=== PATIENT | male | born 1975 | race African-American/Black ===

== ENCOUNTER 2020-02-05 20:28 | Emergency (ER) | payer BC, SELFPAY ==
[2020-02-05] VITALS (9 sets, daily range): BP systolic 149–215; BP diastolic 92–131; PULSE 65–76; RESP 16–20; TEMP 36.3; O2SAT 96–100
--- NOTE | ~2020-02-05 | CT_ITS ---
EXAMINATION: CT brain wo con DATE: 02/05/2020 22:12 INDICATION: Headache. Hypertension. TECHNIQUE: Computed tomography (CT) of the head was performed without intravenous contrast. The mA wa s adjusted according to patient size. Iterative reconstruction technique was employed. Exam dose: 90 8.00 mGy-cm total exam DLP. COMPARISON: 03/06/2019 CT brain FINDINGS: There is an approximately 1.9 x 2.4 cm hematoma of the left posteromedial parietal lobe wit h surrounding rim of edema. Otherwise no appreciable mass effect or midline shift is noted. There is subarachnoid hemorrhage identified in the right sylvian fissure and multiple right temporopa rietal sulci and both posterior parietal areas. No apparent subdural or epidural hematoma is noted. E xamination is somewhat limited due to streak artifact from hands. No fracture or bone destruction of the cranial vault. The mastoid air cells and paranasal sinuses are normally developed and aerated. IMPRESSION: 1.9 x 2.4 cm left posteromedial parietal lobe hematoma with surrounding edema Subarachnoid hemorrhage Reviewed, dictated and finalized at [facility]. Reviewed, dictated and finalized at [facility]. IMPRESSION: 1.9 x 2.4 cm left posteromedial parietal lobe hematoma with surrou nding edema Subarachnoid hemorrhage
--- NOTE | 2020-02-05 20:58 | ECG_ITS ---
Measurements Intervals [place] Rate: 59 P: 28 NV: 169 QRS: -7 QRSD: 97 T: -28 QT: 421 QTc: 418 Interpretive Statements SINUS BRADYCARDIA CANNOT RULE OUT SEPTAL INFARCT, AGE INDETERMINATE BORDERLINE ST-T WAVE ABNORMALITY- INFERIOR LEADS ABNORMAL ECG Electronically Signed On 02-06-2020 7:05:29 CDT by Christopher Mann D.O.
[2020-02-05] MEDS: AMLODIPINE BESYLATE 5 MG TABLET 10 MG PO (21:14)
[2020-02-05 21:26] LABS: Basophils Percent Auto 0.3 % (0.2-1.2); Eosinophils Absolute Auto 0.1 K/mm3 (0-0.3); Eosinophils Percent Auto 0.7 % (0-4.4); Hematocrit 44.5 % (42.0-52.0); Immature Granulocyte Absolute 0.05 K/mm3 (0.00-0.031); Immature Granulocyte Percent A 0.3 % (0-0.5); Lymphocytes Absolute Auto 1.72 K/mm3 (0.9-3.2); Mean Corpuscular HGB Conc 31.5 g/dl (32-36); Mean Corpuscular Hemoglobin 26.7 pg (26-34); Mean Corpuscular Volume 84.8 fl (80-100); Mean Platelet Volume 9.4 fl (7.4-10.4); Neutrophils Absolute Auto 11.4 K/mm3 (1.3-6.7); Neutrophils Percent Auto 79.7 % (45.5-73.1); Platelet Count Result 316 k/mm3 (150-375); Red Blood Count 5.25 M/mm3 (4.6-6.20); Red Cell Distribution Width 14.6 % (11.5-14.5); White Blood Count 14.3 K/mm3 (4.5-10.0)
--- NOTE | 2020-02-05 21:28 | ED.GENADULT ---
HPI - General Adult General Chief complaint: Headache Stated complaint: headache Time Seen by Provider: 02/05/20 21:00 History of Present Illness HPI narrative: Patient is a 44 y/o male complaining of bilateral frontal headache for 2 weeks. He states that his headache an aching sensation and he rates his pain as 10/10. He took Ibuprofen earlier today which did not help. He has some nausea, but vomiting. He has no fever, chill, no focal weakness or numbness. Related Data Allergies Allergy/AdvReac Type Severity Reaction Status Date / Time latex Allergy Mild Rash Verified 09/21/19 10:12 COCONUT Allergy Mild SWELLING Uncoded 09/21/19 10:12 Review of Systems Constitutional: Constitutional: Denies chills, Denies fever(s), Reports headache(s) and Denies weakness Eyes: Eyes: Denies blurry vision ENT: Denies headache(s) and Denies neck pain Cardiovascular: Cardiovascular: Denies chest pain and Denies dyspnea Respiratory: Respiratory: Denies cough and Denies dyspnea Gastrointestinal: Gastrointestinal: Denies abdominal pain, Denies diarrhea, Reports nausea and Denies vomiting Genitourinary: Genitourinary: Denies hematuria and Denies dysuria Musculoskeletal: Musculoskeletal: Denies back pain and Denies neck pain Neurologic: Denies headache(s) and Denies weakness PMFSH Past Medical History Medical History Back pain Essential (primary) hypertension Muscle strain Sleep apnea Family History Family History Father Hypertension Family history of sleep apnea Mother Family history of malignant neoplasm of breast in first degree relative Other Diabetes mellitus Family history of malignant neoplasm Social History Social History Smoking status: Light tobacco smoker Second hand tobacco smoke exposure: Yes Alcohol intake: current Gender identity (if verbalized by the patient): Male Exam Const: General: no acute distress and well developed Orientation/consciousness: oriented to person, oriented to place, oriented to time and patient oriented x3 HENMT: Head: normocephalic Ears: external ears normal General nose exam: Normal external nose present Eyes: General: appearance normal, both eyes and all related structures Conjunctivae: conjunctivae normal Neck: Neck: normal visual inspection and full ROM Chest: Chest palpation & inspection: normal inspection of the chest and no tenderness Resp: Effort & Inspection: normal respiratory effort Auscultation: clear to auscultation bilaterally Cardio: Rate: regular rate Rhythm: regular rhythm GI: GI Palp: No abdominal tenderness and Yes Soft to palpation Skin: General skin exam: normal color and turgor normal Neuro: General: oriented to person, oriented to place, oriented to time and patient oriented x3 Cranial nerves: Yes CN's II-XII intact bilaterally Cognition (Neuro): normal cognition Speech: normal speech Motor exam (neuro): 5/5 motor strength present throughout Sensory Exam: normal sensation Coordination: [id number] test normal and [id number] test normal Extrem: General: normal to inspection, full ROM and no pedal edema Psych: Appearance: grossly normal Mental Status: mental status grossly normal Affect: normal affect Course Reevaluation(s) Reevaluation #1: called pharmacy about Nimodipine for prophylaxis of spasm. Nimodipine is not available. Date: 02/05/20 Time: 22:45 Consultations Consultation #1: Discussed with Dr. Mak (neurology) at [facility], who agrees to transfer. He would like patient to be transferred to ED. Date: 02/05/20 Time: 23:02 Consultation #2: Discussed with Amor at [facility] ED. He accepts patient for transfer on behalf of Dr. Fernando. Date: 02/05/20 Time: 23:08 Vital Signs Vital signs: Vital Signs Temperature 36.3 C L 02/05/20 20:29 Pulse Rate 76 02/05/20 20:2
[2020-02-05 21:37] LABS: Alanine Aminotransferase 31 U/L (4-50); Albumin Level 4.3 g/dL (3.5-5.1); Alkaline Phosphatase 57 U/L (38-126); Aspartate Amino Transferase 29 U/L (17-59); Blood Urea Nitrogen 20 mg/dL (9-20); Carbon Dioxide 28 mmol/L (22-30); Chloride 101 mmol/L (98-107); Estimated CRCL calculation 95 ml/min; Estimated Glomerular Filt Rate > 60; Glucose 98 mg/dL (75-110); Potassium 3.9 mmol/L (3.4-5.0); Sodium 137 mmol/L (137-145)
[2020-02-05] MEDS: lisinopriL 20 MG TABLET PO (22:24)
[2020-02-05] MEDS: hydroCHLOROthiazide 25 MG TABLET PO (22:24)
[2020-02-05] MEDS: LABETALOL HCL INJ 100 MG/20 ML VIAL 20 MG IV PUSH (22:25)
[2020-02-05] MEDS: MORPHINE SULFATE 2 MG/ML INJ IV PUSH (22:30)
[2020-02-05 22:58] LABS: Prothrombin Time 12.9 Seconds (11.1-14.7)
[2020-02-05 22:59] LABS: Partial Thromboplastin Time 29.3 SECONDS (22.3-36.8)
[2020-02-05] MEDS: niCARdipine 20 MG/200 ML 20 MG/200 ML BAG 50 MG IV CONT (23:09)
--- NOTE | 2020-02-05 23:46 | PC.NURSE ---
cardene gtt increased to 10 mg/hr per dr velez.
[2020-02-06 00:01] VITALS: BP 149/93; PULSE 71; RESP 20; O2SAT 98
== END 2020-02-06 00:03 | disposition short-term general hospital (02) ==
PROVIDERS: Emergency Provider Emergency Medicine; PCP Family Medicine
DX: I60.7 Nontraumatic subarachnoid hemorrhage from unspecified intracranial artery (principal); I10 Essential (primary) hypertension; R00.1 Bradycardia, unspecified; F17.210 Nicotine dependence, cigarettes, uncomplicated
CPT/HCPCS: 36415; 70450; 80053; 85025; 85610; 85730; 93005; 96365; 96375; 99291; A9270; J2270